=== PATIENT | male | born 1980 | race African-American/Black ===

== ENCOUNTER 2023-04-26 06:53 | Day surgery (SDC) | payer BC ==
[2023-04-22 16:50] VITALS: BMI 34.0
[2023-04-26] MEDS ORDERED: PROPOFOL 40 ML ONE (09:12)
[2023-04-26] MEDS ORDERED: Lidocaine 1% PF 5 ML VIAL ONE (09:12)
== END 2023-04-26 10:16 | disposition home or self-care (01) ==
LOC: CSHSDC 06:53
PROVIDERS: ATTEND Internal Medicine Gastroenterology
PROC: 0DBP8ZX Excision of Rectum, Via Natural or Artificial Opening Endoscopic, Diagnostic (ICD-10-PCS; principal; 2023-04-26)
DX: K50.90 Crohn's disease, unspecified, without complications (principal); K62.5 Hemorrhage of anus and rectum; K62.89 Other specified diseases of anus and rectum; K64.8 Other hemorrhoids; K91.89 Other postprocedural complications and disorders of digestive system; K52.9 Noninfective gastroenteritis and colitis, unspecified; I10 Essential (primary) hypertension; Z98.0 Intestinal bypass and anastomosis status; E66.9 Obesity, unspecified; Z79.899 Other long term (current) drug therapy; Z91.041 Radiographic dye allergy status; Z68.34 Body mass index [BMI] 34.0-34.9, adult
CPT/HCPCS: 88305; 88341; 88342; J2704